=== PATIENT | female | born 1960 | race Caucasian/White ===

== ENCOUNTER → 2017-03-10 | Outpatient (CLI) | payer OTHER ==
[~2017-03-10] MED LIST: ANAPROX DS550 MG PO; ATIVAN1 MG PO; AUGMENTIN 875 M1 TAB PO; NKHM PO
== END | disposition home or self-care (01) ==
LOC: US 13:16
DX: N83.201 Unspecified ovarian cyst, right side (principal); N95.0 Postmenopausal bleeding

== ENCOUNTER 2018-03-10 10:25 | Emergency (ER) | payer OTHER ==
[~2018-03-10] VITALS: Wt 83.9 kg
[2018-03-10 10:25] VITALS: BP 137/73
[2018-03-10 11:40] LABS: BASO # 0.1 10*3/uL (0.0-0.1); BASO % 0.9 % (0.0-1.0); EOS # 0.5 10*3/uL (0.0-0.4); EOS % 4.1 % (1.0-4.0); HEMATOCRIT 48.8 % (37.0-47.0); LYMPH # 1.9 10*3/uL (1.3-4.4); LYMPH % 16.1 % (27.0-41.0); MEAN CELL VOLUME 93.1 fl (81.0-99.0); MEAN CORPUSCULAR HGB 30.5 pg (27.0-31.0); MEAN CORPUSCULAR HGB CONC 32.8 g/dl (33.0-37.0); MEAN PLATELET VOLUME 9.5 fl (9.6-12.3); MONO % 8.1 % (3.0-9.0); NEUT # 8.4 10*3/uL (2.3-7.9); NEUT % 70.5 % (47.0-73.0); PLATELET COUNT AUTOMATED 252 10*3/uL (130-400); RED BLOOD COUNT 5.24 10*6/uL (4.10-5.10); RED CELL DISTRI WIDTH 13.6 % (0-14.5); WHITE BLOOD COUNT 11.9 10*3/uL (4.8-10.8)
[2018-03-10 11:54] LABS: ALBUMIN 3.8 gm/dl (3.1-4.5); ALKALINE PHOSPHATASE 87 U/L (45-117); BUN 10 mg/dl (7-24); CHLORIDE 103 mmol/L (98-107); CREATININE 0.71 mg/dL (0.55-1.02); POTASSIUM 4.4 mmol/L (3.5-5.1); SGOT/AST 20 IU/L (3-35); SGPT/ALT 22 U/L (12-78); SODIUM 138 mmol/L (136-145); TOTAL PROTEIN 8.3 gm/dL (6.4-8.2)
[2018-03-10] MEDS ORDERED: AUGMENTIN 875875 MG PO (12:29)
== END 2018-03-10 12:40 | disposition left against medical advice (07) ==
LOC: ED 10:25
PROVIDERS: Physician Assistant
DX: S61.552A Open bite of left wrist, initial encounter (principal); L03.114 Cellulitis of left upper limb; Z79.899 Other long term (current) drug therapy; W55.01XA Bitten by cat, initial encounter; Y93.89 Activity, other specified; Y92.89 Other specified places as the place of occurrence of the external cause; Y99.9 Unspecified external cause status

== ENCOUNTER 2018-10-14 00:15 | Emergency (ER) | payer MEDICAID ==
[~2018-10-14] VITALS: Ht 162.5 cm; Wt 83.9 kg
[~2018-10-14 00:15] MED LIST changes: +AUGMENTIN 875875 MG PO
[2018-10-14 00:16] VITALS: BP 153/79
== END 2018-10-14 00:41 | disposition left against medical advice (07) ==
LOC: ED 00:15
DX: R51 Headache (principal); R42 Dizziness and giddiness; Z53.21 Procedure and treatment not carried out due to patient leaving prior to being seen by health care provider

== ENCOUNTER 2020-10-27 10:40 | Emergency (ER) | payer OTHER ==
[~2020-10-27] VITALS: Wt 86.2 kg
[2020-10-27 10:49] VITALS: BP 112/77
== END 2020-10-27 12:00 | disposition home or self-care (01) ==
LOC: ED 10:40
DX: S90.31XA Contusion of right foot, initial encounter (principal); W22.8XXA Striking against or struck by other objects, initial encounter; Y93.89 Activity, other specified; Y92.89 Other specified places as the place of occurrence of the external cause; Y99.8 Other external cause status

== ENCOUNTER 2020-11-11 07:14 | Emergency (ER) | payer OTHER ==
[~2020-11-11] VITALS: Ht 165.1 cm; Wt 88.5 kg
[2020-11-11 07:21] VITALS: BP 131/74
== END 2020-11-11 09:36 | disposition home or self-care (01) ==
LOC: ED 07:14
DX: S52.515A Nondisplaced fracture of left radial styloid process, initial encounter for closed fracture (principal); Z98.51 Tubal ligation status; W00.0XXA Fall on same level due to ice and snow, initial encounter; Y93.89 Activity, other specified; Y92.89 Other specified places as the place of occurrence of the external cause; Y99.8 Other external cause status

== ENCOUNTER → 2020-11-22 | Outpatient (CLI) | payer OTHER | END | disposition home or self-care (01) | LOC: RAD 10:05 | PROVIDERS: ATTEND Family Medicine | DX: S22.42XA Multiple fractures of ribs, left side, initial encounter for closed fracture (principal); X58.XXXA Exposure to other specified factors, initial encounter; Y93.89 Activity, other specified; Y92.89 Other specified places as the place of occurrence of the external cause; Y99.8 Other external cause status ==

== ENCOUNTER → 2021-02-27 | Outpatient (CLI) | payer OTHER | END | disposition home or self-care (01) | LOC: RAD 09:08 | PROVIDERS: ATTEND Family Medicine | DX: S52.515A Nondisplaced fracture of left radial styloid process, initial encounter for closed fracture (principal); S63.92XA Sprain of unspecified part of left wrist and hand, initial encounter; X58.XXXA Exposure to other specified factors, initial encounter; Y93.89 Activity, other specified; Y92.89 Other specified places as the place of occurrence of the external cause; Y99.8 Other external cause status ==

== ENCOUNTER → 2021-04-25 | Day surgery (SDC) | payer OTHER ==
[2021-04-22 10:18] VITALS: BP 119/57
[2021-04-22 11:34] LABS: BASO # 0.1 10*3/uL (0.0-0.1); BASO % 1.4 % (0.0-1.0); EOS # 0.6 10*3/uL (0.0-0.4); EOS % 5.6 % (1.0-4.0); HEMATOCRIT 45.9 % (37.0-47.0); LYMPH # 2.2 10*3/uL (1.3-4.4); LYMPH % 21.8 % (27.0-41.0); MEAN CELL VOLUME 92.4 fl (81.0-99.0); MEAN CORPUSCULAR HGB 29.6 pg (27.0-31.0); MEAN PLATELET VOLUME 9.9 fl (9.6-12.3); MONO # 0.8 10*3/uL (0.1-1.0); MONO % 8.1 % (3.0-9.0); NEUT # 6.2 10*3/uL (2.3-7.9); NEUT % 62.8 % (47.0-73.0); PLATELET COUNT AUTOMATED 279 10*3/uL (130-400); RED BLOOD COUNT 4.97 10*6/uL (4.10-5.10); RED CELL DISTRI WIDTH 13.3 % (0-14.5); WHITE BLOOD COUNT 9.9 10*3/uL (4.8-10.8)
[2021-04-22 11:46] LABS: BUN 15 mg/dl (7-24); CHLORIDE 108 mmol/L (98-107); CREATININE 0.67 mg/dL (0.55-1.02); POTASSIUM 4.2 mmol/L (3.5-5.1); SODIUM 135 mmol/L (136-145)
[~2021-04-25] VITALS: Ht 160 cm; Wt 88.5 kg
[~2021-04-25] MED LIST changes: +HYDROCODONE-AC1 EAC1 PO
[2021-04-25 08:08] VITALS: BP 144/72
[2021-04-25 10:21] VITALS: BP 135/55
[2021-04-25 10:36] VITALS: BP 163/48
[2021-04-25 10:52] VITALS: BP 155/80
== END | disposition home or self-care (01) ==
LOC: SDC 04-22 14:00
PROVIDERS: ATTEND Orthopaedic Surgery
DX: S52.515A Nondisplaced fracture of left radial styloid process, initial encounter for closed fracture (principal); G56.01 Carpal tunnel syndrome, right upper limb; G52.9 Cranial nerve disorder, unspecified; F17.210 Nicotine dependence, cigarettes, uncomplicated; Z20.822 Contact with and (suspected) exposure to COVID-19; Z85.41 Personal history of malignant neoplasm of cervix uteri; W19.XXXA Unspecified fall, initial encounter; Y93.89 Activity, other specified; Y92.89 Other specified places as the place of occurrence of the external cause; Y99.8 Other external cause status

== ENCOUNTER → 2021-05-09 | Outpatient (CLI) | payer OTHER | END | disposition home or self-care (01) | LOC: RAD 10:35 | PROVIDERS: ATTEND Orthopaedic Surgery | DX: S52.515D Nondisplaced fracture of left radial styloid process, subsequent encounter for closed fracture with routine healing (principal); R60.0 Localized edema; X58.XXXD Exposure to other specified factors, subsequent encounter ==

== ENCOUNTER → 2021-05-31 | Outpatient (CLI) | payer OTHER | END | disposition home or self-care (01) | LOC: ORTHO 02:25 | PROVIDERS: ATTEND Orthopaedic Surgery | DX: S52.515 Nondisplaced fracture of left radial styloid process (principal); X58.XXXD Exposure to other specified factors, subsequent encounter ==

== ENCOUNTER → 2021-07-01 | Outpatient (CLI) | payer OTHER | END | disposition home or self-care (01) | LOC: ORTHO 00:40 | PROVIDERS: ATTEND Orthopaedic Surgery | DX: S52.515 Nondisplaced fracture of left radial styloid process (principal); X58.XXXD Exposure to other specified factors, subsequent encounter ==

== ENCOUNTER → 2021-08-12 | Outpatient (CLI) | payer OTHER | END | disposition home or self-care (01) | LOC: ORTHO 01:48 | PROVIDERS: ATTEND Orthopaedic Surgery | DX: S52.515 Nondisplaced fracture of left radial styloid process (principal); X58.XXXD Exposure to other specified factors, subsequent encounter ==

== ENCOUNTER → 2021-08-28 | Outpatient (CLI) | payer OTHER | END | disposition home or self-care (01) | LOC: ORTHO 00:18 | PROVIDERS: ATTEND Orthopaedic Surgery | DX: M25.511 Pain in right shoulder (principal) ==

== ENCOUNTER → 2021-09-17 | Day surgery (SDC) | payer OTHER ==
[2021-09-13 13:44] LABS: BUN 12 mg/dl (7-24); CHLORIDE 108 mmol/L (98-107); CREATININE 0.68 mg/dL (0.55-1.02); POTASSIUM 4.2 mmol/L (3.5-5.1); SODIUM 141 mmol/L (136-145)
[~2021-09-17] VITALS: Ht 162.5 cm; Wt 90.7 kg
[2021-09-17 07:16] VITALS: BP 144/66
[2021-09-17 07:56] VITALS: BP 100/45
[2021-09-17 08:11] VITALS: BP 106/55
[2021-09-17 08:24] VITALS: BP 116/72
== END | disposition home or self-care (01) ==
LOC: SDC 09-13 08:45
PROVIDERS: ATTEND Orthopaedic Surgery
DX: G56.01 Carpal tunnel syndrome, right upper limb (principal); G62.9 Polyneuropathy, unspecified; M75.41 Impingement syndrome of right shoulder; M25.511 Pain in right shoulder; F17.210 Nicotine dependence, cigarettes, uncomplicated; Z98.890 Other specified postprocedural states; Z79.899 Other long term (current) drug therapy; Z20.822 Contact with and (suspected) exposure to COVID-19

== ENCOUNTER → 2021-10-11 | Outpatient (CLI) | payer OTHER | LOC: MRI 09:54 | PROVIDERS: ATTEND Orthopaedic Surgery | DX: M75.101 Unspecified rotator cuff tear or rupture of right shoulder, not specified as traumatic (principal); M19.011 Primary osteoarthritis, right shoulder; M25.411 Effusion, right shoulder; M75.41 Impingement syndrome of right shoulder ==

== ENCOUNTER → 2021-10-31 | Outpatient (CLI) | payer OTHER | END | disposition home or self-care (01) | LOC: RAD 13:53 | PROVIDERS: ATTEND Orthopaedic Surgery | DX: Z13.820 Encounter for screening for osteoporosis (principal); M81.0 Age-related osteoporosis without current pathological fracture; M85.88 Other specified disorders of bone density and structure, other site; M75.111 Incomplete rotator cuff tear or rupture of right shoulder, not specified as traumatic ==

== ENCOUNTER → 2021-11-28 | Day surgery (SDC) | payer OTHER ==
[2021-11-25 14:57] LABS: BASO # 0.1 10*3/uL (0.0-0.1); EOS # 0.4 10*3/uL (0.0-0.4); EOS % 4.5 % (1.0-4.0); HEMATOCRIT 47.6 % (37.0-47.0); LYMPH # 2.1 10*3/uL (1.3-4.4); MEAN CELL VOLUME 92.1 fl (81.0-99.0); MEAN CORPUSCULAR HGB 29.8 pg (27.0-31.0); MEAN CORPUSCULAR HGB CONC 32.4 g/dl (33.0-37.0); MONO # 0.7 10*3/uL (0.1-1.0); MONO % 7.7 % (3.0-9.0); NEUT # 5.7 10*3/uL (2.3-7.9); NEUT % 63.6 % (47.0-73.0); PLATELET COUNT AUTOMATED 275 10*3/uL (130-400); RED BLOOD COUNT 5.17 10*6/uL (4.10-5.10)
[2021-11-25 15:08] LABS: BUN 17 mg/dl (7-24); CHLORIDE 110 mmol/L (98-107); POTASSIUM 4.6 mmol/L (3.5-5.1); SODIUM 140 mmol/L (136-145)
[~2021-11-28] VITALS: Ht 160 cm; Wt 86.2 kg
[2021-11-28 07:03] VITALS: BP 134/59
[2021-11-28 10:25] VITALS: BP 149/76
[2021-11-28 10:40] VITALS: BP 135/60
[2021-11-28 10:55] VITALS: BP 132/60
[2021-11-28 11:25] VITALS: BP 136/55
== END | disposition home or self-care (01) ==
LOC: SDC 11-25 13:15
PROVIDERS: ATTEND Orthopaedic Surgery
DX: M75.111 Incomplete rotator cuff tear or rupture of right shoulder, not specified as traumatic (principal); M19.011 Primary osteoarthritis, right shoulder; M75.41 Impingement syndrome of right shoulder; M85.80 Other specified disorders of bone density and structure, unspecified site; Z85.41 Personal history of malignant neoplasm of cervix uteri; Z20.822 Contact with and (suspected) exposure to COVID-19; Z79.899 Other long term (current) drug therapy

== ENCOUNTER → 2022-01-03 | Outpatient (CLI) | payer OTHER | END | disposition home or self-care (01) | LOC: ORTHO 01:46 | PROVIDERS: ATTEND Orthopaedic Surgery | DX: M75.111 Incomplete rotator cuff tear or rupture of right shoulder, not specified as traumatic (principal) ==

== ENCOUNTER → 2022-03-26 | Outpatient (CLI) | payer OTHER ==
[2022-03-26 11:46] LABS: BASO # 0.1 10*3/uL (0.0-0.1); BASO % 1.2 % (0.0-1.0); EOS # 0.3 10*3/uL (0.0-0.4); EOS % 2.9 % (1.0-4.0); HEMATOCRIT 47.6 % (37.0-47.0); LYMPH # 1.5 10*3/uL (1.3-4.4); LYMPH % 17.2 % (27.0-41.0); MEAN CELL VOLUME 93.9 fl (81.0-99.0); MEAN PLATELET VOLUME 9.9 fl (9.6-12.3); MONO # 0.8 10*3/uL (0.1-1.0); MONO % 9.1 % (3.0-9.0); NEUT # 5.9 10*3/uL (2.3-7.9); NEUT % 69.2 % (47.0-73.0); PLATELET COUNT AUTOMATED 213 10*3/uL (130-400); RED BLOOD COUNT 5.07 10*6/uL (4.10-5.10); WHITE BLOOD COUNT 8.5 10*3/uL (4.8-10.8)
[2022-03-26 11:51] LABS: BILIRUBIN Negative (Negative); BLOOD Negative (Negative); CLARITY Cloudy (Clear); COLOR Yellow (Yellow); GLUCOSE Negative (Negative); KETONE Negative (Negative); LEUKO ESTERASE Trace (Negative); NITRITE Negative (Negative); PH 5.5 (4.5-8.0)
[2022-03-26 12:01] LABS: ALKALINE PHOSPHATASE 76 U/L (45-117); BUN 11 mg/dl (7-24); CHLORIDE 109 mmol/L (98-107); CHOLESTEROL 219 mg/dL (<200); GAMMA GLUTAMYL TRANSPEPTIDASE 35 U/L (5-55); IRON 59 ug/dL (50-170); LDL CHOLESTEROL 138 mg/dL (9-159); POTASSIUM 4.2 mmol/L (3.5-5.1); SGOT/AST 29 IU/L (3-35); SGPT/ALT 39 U/L (12-78); SODIUM 139 mmol/L (136-145); TOTAL IRON BINDING CAPACITY 346 ug/dl (250-450); TOTAL PROTEIN 7.5 gm/dL (6.4-8.2); TRIGLYCERIDES 94 mg/dl (<150)
[2022-03-26 12:08] LABS: THYROID STIM HORMONE (HS) 0.741 uIU/ml (0.358-4.75)
[2022-03-26 12:13] LABS: VITAMIN D, 25-HYDROXY 14.7 ng/mL (30-100)
[2022-03-26 12:31] LABS: MUCOUS TRACE
== END | disposition home or self-care (01) ==
LOC: LAB 11:11
PROVIDERS: ATTEND Family Medicine
DX: E78.5 Hyperlipidemia, unspecified (principal); E55.9 Vitamin D deficiency, unspecified; R79.89 Other specified abnormal findings of blood chemistry; R53.83 Other fatigue; R74.8 Abnormal levels of other serum enzymes

== ENCOUNTER → 2023-01-12 | Outpatient (CLI) | payer OTHER ==
[~2023-01-12] MED LIST changes: +ROPINIROLE HYD0.5 MG PO
[2023-01-12 14:52] LABS: HEMATOCRIT 49.7 % (37.0-47.0); MEAN CELL VOLUME 97.5 fl (81.0-99.0); MEAN CORPUSCULAR HGB 32.2 pg (27.0-31.0); PLATELET COUNT AUTOMATED 209 10*3/uL (130-400); RED CELL DISTRI WIDTH 13.2 % (0-14.5); RETICULOCYTE % 1.58 % (0.50-2.50)
[2023-01-12 14:55] LABS: BILIRUBIN Negative (Negative); BLOOD Negative (Negative); CLARITY Clear (Clear); COLOR Yellow (Yellow); GLUCOSE Negative (Negative); KETONE Negative (Negative); LEUKO ESTERASE Negative (Negative); NITRITE Negative (Negative); PH 5.5 (4.5-8.0)
[2023-01-12 15:20] LABS: VITAMIN D, 25-HYDROXY 17.4 ng/mL (30-100)
[2023-01-12 15:21] LABS: ALKALINE PHOSPHATASE 59 U/L (46-116); BUN 10 mg/dl (9-23); CHLORIDE 106 mmol/L (98-107); CHOLESTEROL 268 mg/dL (<200); GAMMA GLUTAMYL TRANSPEPTIDASE 28 U/L (0-73); LDL CHOLESTEROL 179 mg/dL (9-159); POTASSIUM 3.9 mmol/L (3.4-5.1); SGPT/ALT 10 U/L (10-49); T3 UPTAKE 23.1 % (22.4-36.7); THYROID STIM HORMONE (HS) 1.092 uIU/ml (0.550-4.780); TOTAL PROTEIN 7.5 gm/dL (6.0-8.0); TRIGLYCERIDES 93 mg/dl (<150); URIC ACID 5.5 mg/dL (3.1-7.8)
[2023-01-12 15:27] LABS: EPITHELIAL CELLS 41-50; RBC 0-2 rbc/hpf (0-2); WBC 0-2 wbc/hpf (0-5)
[2023-01-12 15:53] LABS: BASOPHILS 1 % (0-1); PLATELET SUFFICIENCY NORMAL (NORMAL); TOTAL CELLS COUNTED 100 #CELLS
[2023-01-13 06:07] LABS: TOTAL PROTEIN, SERUM 6.8 g/dL (6.0-8.5)
[2023-01-13 13:06] LABS: ALBUMIN 3.4 g/dL (2.9-4.4); ALPHA-1-GLOBULIN 0.3 g/dL (0.0-0.4); ALPHA-2-GLOBULIN 0.8 g/dL (0.4-1.0); BETA GLOBULIN 1.1 g/dL (0.7-1.3); GAMMA GLOBULIN 1.2 g/dL (0.4-1.8); GLOBULIN, TOTAL 3.4 g/dL (2.2-3.9); M-SPIKE Not Observed g/dL (Not Observed)
[2023-01-13 14:07] LABS: ANTI-DSDNA ANTIBODIES <1 IU/mL (0-9)
== END | disposition home or self-care (01) ==
LOC: LAB 14:30
PROVIDERS: ATTEND Family Medicine
DX: E78.5 Hyperlipidemia, unspecified (principal); E55.9 Vitamin D deficiency, unspecified; R79.89 Other specified abnormal findings of blood chemistry; R53.83 Other fatigue; R74.8 Abnormal levels of other serum enzymes; R06.02 Shortness of breath

== ENCOUNTER 2023-07-30 11:04 | Emergency (ER) | payer OTHER ==
[~2023-07-30] VITALS: Ht 162.5 cm; Wt 57.6 kg
[~2023-07-30 11:04] MED LIST changes: +ATORVASTATIN CA40 M1 PO; +CLOPIDOGREL75 MG PO; +FUROSEMIDE20 M1 PO; +POTASSIUM CHLO10 MEQ PO; +VAZALORE81 MG PO
[2023-07-30 11:08] VITALS: BP 98/43
[2023-07-30 11:10] VITALS: BP 98/52
[2023-07-30 11:35] LABS: BASO # 0.1 10*3/uL (0.0-0.1); BASO % 1.1 % (0.0-1.0); EOS # 0.2 10*3/uL (0.0-0.4); EOS % 2.8 % (1.0-4.0); HEMATOCRIT 39.5 % (37.0-47.0); LYMPH # 1.4 10*3/uL (1.3-4.4); MEAN CELL VOLUME 82.6 fl (81.0-99.0); MEAN CORPUSCULAR HGB 26.4 pg (27.0-31.0); MEAN CORPUSCULAR HGB CONC 31.9 g/dl (33.0-37.0); MEAN PLATELET VOLUME 10.1 fl (9.6-12.3); MONO # 0.6 10*3/uL (0.1-1.0); NEUT # 5.3 10*3/uL (2.3-7.9); NEUT % 69.8 % (47.0-73.0); PLATELET COUNT AUTOMATED 285 10*3/uL (130-400); RED BLOOD COUNT 4.78 10*6/uL (4.10-5.10); RED CELL DISTRI WIDTH 15.9 % (0-14.5); WHITE BLOOD COUNT 7.6 10*3/uL (4.8-10.8)
[2023-07-30 11:45] VITALS: BP 107/48
[2023-07-30 11:45] LABS: ACT PARTIAL THROMBO TIME 27.9 SECONDS (20.0-32.1)
[2023-07-30 11:57] LABS: ALKALINE PHOSPHATASE 65 U/L (46-116); BUN 12 mg/dl (9-23); CHLORIDE 104 mmol/L (98-107); LIPASE 45 U/L (12-53); POTASSIUM 4.4 mmol/L (3.4-5.1); SGPT/ALT 16 U/L (5-49); TOTAL PROTEIN 7.6 gm/dL (6.0-8.0)
[2023-07-30 11:58] VITALS: BP 106/48
== END 2023-07-30 12:55 | disposition left against medical advice (07) ==
LOC: ED 11:04 → EDHOLD 12:16 → ED 12:55 → EDHOLD 13:12
PROVIDERS: Emergency Medicine
DX: R42 Dizziness and giddiness (principal); I95.9 Hypotension, unspecified; Z79.899 Other long term (current) drug therapy; Z79.82 Long term (current) use of aspirin; Z90.89 Acquired absence of other organs; Z98.890 Other specified postprocedural states; Z98.51 Tubal ligation status

== ENCOUNTER → 2025-01-09 | Outpatient (CLI) | payer OTHER ==
[2025-01-09 11:57] LABS: BASO # 0.1 10*3/uL (0.0-0.1); BASO % 1.3 % (0.0-1.0); EOS # 0.3 10*3/uL (0.0-0.4); EOS % 3.6 % (1.0-4.0); HEMATOCRIT 43.9 % (37.0-47.0); MEAN CELL VOLUME 94.2 fl (81.0-99.0); MEAN CORPUSCULAR HGB 31.5 pg (27.0-31.0); MEAN CORPUSCULAR HGB CONC 33.5 g/dl (33.0-37.0); MONO # 0.6 10*3/uL (0.1-1.0); MONO % 7.7 % (3.0-9.0); NEUT # 5.3 10*3/uL (2.3-7.9); NEUT % 69.9 % (47.0-73.0); PLATELET COUNT AUTOMATED 247 10*3/uL (130-400); RED BLOOD COUNT 4.66 10*6/uL (4.10-5.10); RED CELL DISTRI WIDTH 13.2 % (0-14.5); RETICULOCYTE % 1.37 % (0.50-2.50); WHITE BLOOD COUNT 7.6 10*3/uL (4.8-10.8)
[2025-01-09 12:18] LABS: BILIRUBIN Negative (Negative); BLOOD Negative (Negative); CLARITY Cloudy (Clear); COLOR Yellow (Yellow); GLUCOSE Negative (Negative); KETONE Negative (Negative); LEUKO ESTERASE 2+ (Negative); NITRITE Negative (Negative); PH 7.5 (4.5-8.0); SPECIFIC GRAVITY 1.015 (1.001-1.030)
[2025-01-09 12:25] LABS: ALKALINE PHOSPHATASE 71 U/L (46-116); BUN 7 mg/dl (9-23); CHLORIDE 109 mmol/L (98-107); CHOLESTEROL 199 mg/dL (<200); GAMMA GLUTAMYL TRANSPEPTIDASE 27 U/L (0-73); LDL CHOLESTEROL 106 mg/dL (9-159); POTASSIUM 4.1 mmol/L (3.4-5.1); SGPT/ALT 14 U/L (5-49); T3 UPTAKE 29.1 % (22.4-36.7); TOTAL PROTEIN 7.4 gm/dL (6.0-8.0); TRIGLYCERIDES 112 mg/dl (<150)
[2025-01-09 12:38] LABS: BACTERIA 3+; EPITHELIAL CELLS 31-40; WBC 21-30 wbc/hpf (0-5)
== END | disposition home or self-care (01) ==
LOC: LAB 11:14
PROVIDERS: ATTEND Family Medicine
DX: R79.89 Other specified abnormal findings of blood chemistry (principal); R53.83 Other fatigue; E78.5 Hyperlipidemia, unspecified; E55.9 Vitamin D deficiency, unspecified

== ENCOUNTER → 2025-05-30 | Outpatient (CLI) | payer OTHER | LOC: US 13:30 | PROVIDERS: ATTEND Family Medicine | DX: I70.212 Atherosclerosis of native arteries of extremities with intermittent claudication, left leg (principal) ==